=== PATIENT | male | born 1970 | race Caucasian/White ===

== ENCOUNTER 2019-03-24 09:56 | Emergency (ER) | payer BC ==
[~2019-03-24] VITALS: Ht 188 cm; Wt 131.8 kg
[~2019-03-24 09:56] MED LIST: ALBUTEROL1.25 MG/3 IH; AMOXICILLIN 50500 MG PO; COZAAR100 MG PO; KEFLEX500 MG PO; LEVAQUIN 5500 MG/TA1 PO; LEVOXYL0.05 MG PO; MOBIC 7.5MG7.5 MG PO; NO HOME MEDICATIONS; NORCO 325 MG-7.1 TAB PO; PREDNISONE 20MG20 MG PO; PREDNISONE20 MG PO; PRILOSEC 20MG20 MG PO; PRINIVIL10 MG PO; ROBITUSSIN A-C S1 M1 PO; TESSALON PERLE200 MG PO; TUSS PO; VENTOLIN0.09 MG IH
[2019-03-24 10:45] VITALS: BP 122/69; PULSE 125; TEMP 99.1
== END 2019-03-24 12:33 | disposition home or self-care (01) ==
LOC: COL.ER 09:56
DX: J09.X2 Influenza due to identified novel influenza A virus with other respiratory manifestations (principal); I10 Essential (primary) hypertension; E03.9 Hypothyroidism, unspecified

== ENCOUNTER 2019-07-19 16:30 | Outpatient (RCR) | payer BC | END 2019-09-01 09:14 | disposition home or self-care (01) | LOC: WSC 16:30 | DX: M54.12 Radiculopathy, cervical region (principal) ==

== ENCOUNTER → 2019-08-11 | Outpatient (CLI) | payer BC | LOC: MHCPAIN 09:31 | DX: M54.2 Cervicalgia (principal); M54.12 Radiculopathy, cervical region; R51 Headache; G89.29 Other chronic pain | CPT/HCPCS: G0463 ==

== ENCOUNTER → 2019-08-26 | Outpatient (CLI) | payer BC | LOC: MHCPAIN 10:16 | DX: M47.812 Spondylosis without myelopathy or radiculopathy, cervical region (principal); M54.2 Cervicalgia; M54.12 Radiculopathy, cervical region; G89.29 Other chronic pain | CPT/HCPCS: J1100; Q9967 ==

== ENCOUNTER → 2019-08-31 | Outpatient (CLI) | payer BC | LOC: MHCPAIN 15:39 | DX: M47.812 Spondylosis without myelopathy or radiculopathy, cervical region (principal); M54.2 Cervicalgia; M54.12 Radiculopathy, cervical region; G89.29 Other chronic pain | CPT/HCPCS: G0463 ==

== ENCOUNTER 2020-04-28 16:15 | Outpatient (RCR) | payer BC | END 2020-07-11 | disposition home or self-care (01) | LOC: WSC | DX: M25.511 Pain in right shoulder (principal) ==